=== PATIENT | female | born 1945 | race Caucasian/White ===

== ENCOUNTER → 2017-07-14 | Outpatient (CLI) | payer MEDICARE | END | disposition home or self-care (01) | LOC: CFH 12:14 | PROVIDERS: ATTEND Nurse Practitioner Primary Care | DX: Z12.31 Encounter for screening mammogram for malignant neoplasm of breast (principal) | CPT/HCPCS: 77063; 77067 ==

== ENCOUNTER → 2017-07-21 | Outpatient (CLI) | payer MEDICARE | LOC: CFH 15:36 | PROVIDERS: ATTEND Nurse Practitioner Primary Care | DX: Z12.2 Encounter for screening for malignant neoplasm of respiratory organs (principal); I25.10 Atherosclerotic heart disease of native coronary artery without angina pectoris; R91.8 Other nonspecific abnormal finding of lung field; F17.210 Nicotine dependence, cigarettes, uncomplicated | CPT/HCPCS: G0297 ==

== ENCOUNTER → 2017-08-17 | Outpatient (CLI) | payer MEDICARE ==
[~2017-08-17] MED LIST: OMNIPAQUE 350 MG/ML, 75ML BOTTLE ONE
== END ==
LOC: CFH 09:02
PROVIDERS: ATTEND Nurse Practitioner Primary Care
DX: J43.9 Emphysema, unspecified (principal); E04.9 Nontoxic goiter, unspecified; R91.8 Other nonspecific abnormal finding of lung field
CPT/HCPCS: 71260; 82565; Q9967

== ENCOUNTER → 2017-09-14 | Outpatient (CLI) | payer MEDICARE | LOC: CFH 13:36 | PROVIDERS: ATTEND Nurse Practitioner Primary Care | DX: Z02.9 Encounter for administrative examinations, unspecified (principal) ==

== ENCOUNTER → 2017-09-27 | Outpatient (CLI) | payer MEDICARE | END | disposition home or self-care (01) | LOC: CFH 11:40 | PROVIDERS: ATTEND Nurse Practitioner Primary Care | DX: M51.26 Other intervertebral disc displacement, lumbar region (principal); M48.061 Spinal stenosis, lumbar region without neurogenic claudication; M51.37 Other intervertebral disc degeneration, lumbosacral region; M54.40 Lumbago with sciatica, unspecified side | CPT/HCPCS: 72131 ==

== ENCOUNTER → 2018-01-12 | Outpatient (CLI) | payer MEDICARE | END | disposition home or self-care (01) | LOC: CFH 16:01 | PROVIDERS: ATTEND Nurse Practitioner Primary Care | DX: M51.34 Other intervertebral disc degeneration, thoracic region (principal); M51.36 Other intervertebral disc degeneration, lumbar region; M41.86 Other forms of scoliosis, lumbar region; R53.83 Other fatigue; I10 Essential (primary) hypertension; E55.9 Vitamin D deficiency, unspecified; E11.42 Type 2 diabetes mellitus with diabetic polyneuropathy; R20.2 Paresthesia of skin; E56.8 Deficiency of other vitamins; D50.9 Iron deficiency anemia, unspecified; M81.8 Other osteoporosis without current pathological fracture; F06.31 Mood disorder due to known physiological condition with depressive features; E78.2 Mixed hyperlipidemia; G43.909 Migraine, unspecified, not intractable, without status migrainosus; G47.00 Insomnia, unspecified; M54.40 Lumbago with sciatica, unspecified side | CPT/HCPCS: 72072; 72100 ==

== ENCOUNTER → 2018-02-02 | Outpatient (CLI) | payer MEDICARE, MEDICAID | END | disposition home or self-care (01) | LOC: CFH 15:49 | PROVIDERS: ATTEND Nurse Practitioner Primary Care | DX: S22.31XD Fracture of one rib, right side, subsequent encounter for fracture with routine healing (principal); J43.9 Emphysema, unspecified; E04.2 Nontoxic multinodular goiter; R53.83 Other fatigue; M54.40 Lumbago with sciatica, unspecified side; I10 Essential (primary) hypertension; E55.9 Vitamin D deficiency, unspecified; E11.42 Type 2 diabetes mellitus with diabetic polyneuropathy; R20.2 Paresthesia of skin; E56.8 Deficiency of other vitamins; D50.9 Iron deficiency anemia, unspecified; M81.8 Other osteoporosis without current pathological fracture; F06.31 Mood disorder due to known physiological condition with depressive features; E78.2 Mixed hyperlipidemia; G43.909 Migraine, unspecified, not intractable, without status migrainosus; G47.00 Insomnia, unspecified; Z86.12 Personal history of poliomyelitis; Z91.81 History of falling; X58.XXXD Exposure to other specified factors, subsequent encounter | CPT/HCPCS: 71250 ==

== ENCOUNTER → 2018-04-13 | Outpatient (CLI) | payer MEDICARE, MEDICAID ==
[~2018-04-13] MED LIST changes: +LIDOCAINE-MPF 1%, 5ML ONE; -OMNIPAQUE 350 MG/ML, 75ML BOTTLE ONE
== END | disposition home or self-care (01) ==
LOC: RAD 12:05
PROVIDERS: ATTEND Nurse Practitioner Primary Care
DX: E05.90 Thyrotoxicosis, unspecified without thyrotoxic crisis or storm (principal)
CPT/HCPCS: 10022; 76536; 76942; 88173

== ENCOUNTER → 2018-09-21 | Outpatient (CLI) | payer MEDICARE, MEDICAID | END | disposition home or self-care (01) | LOC: CFH 14:58 | PROVIDERS: ATTEND Nurse Practitioner Primary Care | DX: Z12.2 Encounter for screening for malignant neoplasm of respiratory organs (principal); R91.1 Solitary pulmonary nodule; I70.0 Atherosclerosis of aorta; E04.8 Other specified nontoxic goiter; F17.210 Nicotine dependence, cigarettes, uncomplicated | CPT/HCPCS: G0297 ==

== ENCOUNTER 2020-01-15 13:02 | Outpatient (CLI) | payer MEDICARE, MEDICAID | END 2020-01-15 23:59 | disposition home or self-care (01) | LOC: CFH 13:02 | PROVIDERS: ATTEND Nurse Practitioner Family | DX: Z12.31 Encounter for screening mammogram for malignant neoplasm of breast (principal); Z13.820 Encounter for screening for osteoporosis; Z12.2 Encounter for screening for malignant neoplasm of respiratory organs; R91.8 Other nonspecific abnormal finding of lung field; I25.10 Atherosclerotic heart disease of native coronary artery without angina pectoris; Z87.891 Personal history of nicotine dependence; E04.2 Nontoxic multinodular goiter; N95.9 Unspecified menopausal and perimenopausal disorder; J98.4 Other disorders of lung; M51.34 Other intervertebral disc degeneration, thoracic region | CPT/HCPCS: 76536; 77063; 77067; G0297 ==

== ENCOUNTER → 2020-03-08 | Outpatient (CLI) | payer MEDICARE, MEDICAID | END | disposition home or self-care (01) | LOC: RAD 15:47 | PROVIDERS: ATTEND Pain Medicine Interventional Pain Medicine | DX: Z01.818 Encounter for other preprocedural examination (principal); I25.2 Old myocardial infarction | CPT/HCPCS: 71046; 93005 ==